=== PATIENT | female | born 1935 | race Caucasian/White ===

== ENCOUNTER 2017-01-02 17:46 | Inpatient (IN) | payer MEDICARE ==
[~2017-01-02] VITALS: Ht 157.5 cm; Wt 63.2 kg
[~2017-01-02 17:46] MED LIST: ALEN70TA5 PO; APIX5TAB PO; ASPI325T4 PO; CHOL20002 PO; HYDR-3138 PO; LOVA20TA2 PO; METR500T PO; OMEP-110 PO; SULI200T2 PO
[2017-01-02] MEDS ORDERED: SODIUM CHLORIDE FLUSH 10ML SYR IVF ONE (18:30)
[2017-01-02 18:34] LABS: HEMATOCRIT 41.9 % (34.6-47.8); HEMOGLOBIN 13.8 g/dL (11.7-16.4); WHITE BLOOD COUNT 7.6 x10^3/uL (3.4-10)
[2017-01-02 18:39] LABS: ASPARTATE AMINO TRANSFERASE 19 U/L (15-37); BLOOD UREA NITROGEN 14 mg/dL (7-18)
[2017-01-02 18:46] LABS: IS PT STATUS REG ER OR PRE ER? YES
[2017-01-02] MEDS ORDERED: HEPARIN 5,000 UNITS/ML, 1ML IV ONE ×2 (20:00)
[2017-01-02] MEDS ORDERED: HEPARIN 25,000 UNITS/500ML PMX 500 ML IV PRN ×2 (20:00)
[2017-01-02] MEDS ORDERED: HEPARIN 5,000 UNITS/ML, 1ML IV PRN ×2 (20:00)
[2017-01-02] MEDS ORDERED: HEPARIN 5,000 UNITS/ML, 1ML ONE (20:24)
[2017-01-02] MEDS ORDERED: HEPARIN 25,000 UNITS/500ML PMX 500 ML ONE (20:24)
[2017-01-02] MEDS ORDERED: SODIUM CHLORIDE 0.9% 1,000 ML IV ONE (20:49)
[2017-01-02] MEDS ORDERED: ONDANSETRON 2MG/ML, 2ML IVPush PRN (21:00)
[2017-01-02] MEDS ORDERED: LABETALOL 5MG/ML, 20ML IVPush PRN (21:30)
[2017-01-02] MEDS ORDERED: ONDANSETRON ODT 4 MG PO PRN (21:30)
[2017-01-02] MEDS ORDERED: TEMAZEPAM 15 MG CAPSULE PO PRN (21:30)
[2017-01-02] MEDS ORDERED: POLYETHYLENE GLYCOL 17 GM PACKET PO PRN (21:30)
[2017-01-02] MEDS ORDERED: ACETAMINOPHEN 325 MG TABLET PO PRN (21:30)
[2017-01-03 00:01] VITALS: BP 124/71
[2017-01-03] MEDS: LOVASTATIN 40 MG TABLET PO SCH ×2 (00:18→23:15)
[2017-01-03] MEDS ORDERED: HEPARIN 5,000 UNITS/ML, 1ML IV PRN (01:00)
[2017-01-03 01:50] VITALS: BP 113/73
[2017-01-03 03:02] LABS: HEMATOCRIT 37.2 % (34.6-47.8); HEMOGLOBIN 12.3 g/dL (11.7-16.4); WHITE BLOOD COUNT 6.4 x10^3/uL (3.4-10)
[2017-01-03 03:12] LABS: BLOOD UREA NITROGEN 14 mg/dL (7-18)
[2017-01-03 08:04] VITALS: BP 112/69
[2017-01-03] MEDS: OMEPRAZOLE 20 MG CAPSULE.DR PO SCH (10:10)
[2017-01-03 12:48] VITALS: BP 134/72
[2017-01-03 19:30] VITALS: BP 117/66
[2017-01-04 02:04] VITALS: BP 119/76
[2017-01-04] MEDS: HEPARIN 25,000 UNITS/500ML PMX 500 ML IV PRN (06:49)
[2017-01-04 08:05] VITALS: BP 102/63
[2017-01-04] MEDS: OMEPRAZOLE 20 MG CAPSULE.DR PO SCH (08:51)
[2017-01-04 12:52] VITALS: BP 105/64
[2017-01-04] MEDS ORDERED: LABETALOL 5MG/ML, 20ML IVPush PRN (17:00)
[2017-01-04] MEDS ORDERED: ONDANSETRON ODT 4 MG PO PRN (17:00)
[2017-01-04] MEDS ORDERED: ACETAMINOPHEN 325 MG TABLET PO PRN (17:00)
[2017-01-04] MEDS ORDERED: POLYETHYLENE GLYCOL 17 GM PACKET PO PRN (17:00)
[2017-01-04] MEDS ORDERED: TEMAZEPAM 15 MG CAPSULE PO PRN (17:00)
[2017-01-04 19:58] VITALS: BP 116/66
[2017-01-04] MEDS: LOVASTATIN 40 MG TABLET PO SCH (20:41)
[2017-01-05 00:04] VITALS: BP 120/73
[2017-01-05] MEDS: OMEPRAZOLE 20 MG CAPSULE.DR PO SCH (08:49)
[2017-01-05 09:50] VITALS: BP 109/67
[2017-01-05 12:12] VITALS: BP 115/71
[2017-01-05] MEDS: HEPARIN 25,000 UNITS/500ML PMX 500 ML IV PRN (19:56)
[2017-01-05] MEDS: LOVASTATIN 40 MG TABLET PO SCH (19:58)
[2017-01-05 20:00] VITALS: BP 114/71
[2017-01-06 02:00] VITALS: BP 103/61
[2017-01-06 05:47] LABS: HEMOGLOBIN 12.6 g/dL (11.7-16.4); WHITE BLOOD COUNT 5.1 x10^3/uL (3.4-10)
[2017-01-06 05:55] LABS: BLOOD UREA NITROGEN 13 mg/dL (7-18)
[2017-01-06] MEDS: OMEPRAZOLE 20 MG CAPSULE.DR PO SCH (08:05)
[2017-01-06 08:08] VITALS: BP 108/69
[2017-01-06] MEDS ORDERED: DEXTROMETHORPHAN 30 MG/5 ML ORAL SOL PO PRN (10:30)
[2017-01-06] MEDS: BENZONATATE 100 MG CAPSULE PO SCH ×3 (12:26→20:34)
[2017-01-06 13:45] VITALS: BP 124/69
[2017-01-06 20:00] VITALS: BP 116/71
[2017-01-06] MEDS: LOVASTATIN 40 MG TABLET PO SCH (20:32)
[2017-01-07 02:00] VITALS: BP 107/65
[2017-01-07 05:53] LABS: HEMATOCRIT 39.8 % (34.6-47.8); WHITE BLOOD COUNT 5.5 x10^3/uL (3.4-10)
[2017-01-07 06:07] LABS: BLOOD UREA NITROGEN 18 mg/dL (7-18)
[2017-01-07 07:34] VITALS: BP 108/68
[2017-01-07] MEDS: OMEPRAZOLE 20 MG CAPSULE.DR PO SCH (08:00)
[2017-01-07] MEDS: BENZONATATE 100 MG CAPSULE PO SCH (08:00)
[2017-01-07] MEDS ORDERED: APIXABAN 5 MG TABLET PO SCH (10:00)
[2017-01-07] MEDS ORDERED: BENZ100C4 PO (12:24)
[2017-01-07] MEDS ORDERED: APIX5TAB PO (12:24)
== END 2017-01-07 13:50 | disposition home or self-care (01) | DRG 175 ==
LOC: ED 20:48 → EDIP 20:49 → ED 20:58 → 5SO 23:21 → 4WST 01-04 23:45 → DCLOUNGE 01-07 13:30
DX: I26.99 Other pulmonary embolism without acute cor pulmonale (principal); J96.01 Acute respiratory failure with hypoxia; D68.59 Other primary thrombophilia; I82.412 Acute embolism and thrombosis of left femoral vein; I82.432 Acute embolism and thrombosis of left popliteal vein; I11.9 Hypertensive heart disease without heart failure; E78.5 Hyperlipidemia, unspecified; K21.9 Gastro-esophageal reflux disease without esophagitis; Z96.643 Presence of artificial hip joint, bilateral; K21.0 Gastro-esophageal reflux disease with esophagitis; M81.0 Age-related osteoporosis without current pathological fracture; D69.6 Thrombocytopenia, unspecified; Z86.711 Personal history of pulmonary embolism; Z86.718 Personal history of other venous thrombosis and embolism; Z79.01 Long term (current) use of anticoagulants; Z82.0 Family history of epilepsy and other diseases of the nervous system; Z82.5 Family history of asthma and other chronic lower respiratory diseases; Z88.0 Allergy status to penicillin
CPT/HCPCS: 36415; 71275; 80048; 80053; 83735; 84100; 84484; 85025; 85520; 85610; 85730; 93005; 93306; 93970; 96374; J1644

== ENCOUNTER → 2019-05-12 | Outpatient (CLI) | payer MEDICARE ==
[~2019-05-12] MED LIST changes: -ALEN70TA5 PO; +ALEN70TA6 PO; +ASPI325T17 PO; -ASPI325T4 PO; +BENZ-17 PO; -HYDR-3138 PO; +HYDR-3237 PO
== END | disposition home or self-care (01) ==
LOC: PETCFH 12:30
PROVIDERS: ATTEND Family Medicine
CPT/HCPCS: 78815; A9552 ×2

== ENCOUNTER 2020-09-29 07:02 | Outpatient (CLI) | payer MEDICARE ==
[~2020-09-29 07:02] MED LIST changes: -ALEN70TA6 PO; +ALEN70TA77 PO
== END 2020-09-29 23:59 | disposition home or self-care (01) ==
LOC: ROC 07:02
PROVIDERS: ATTEND Radiology Radiation Oncology
DX: D32.0 Benign neoplasm of cerebral meninges (principal)
CPT/HCPCS: G0463